=== PATIENT | female | born 1940 | race Caucasian/White ===

== ENCOUNTER 2020-09-23 14:55 | Emergency (ER) | payer OTHER ==
[~2020-09-23] VITALS: Ht 149.9 cm; Wt 90.7 kg
[2020-09-23] MEDS ORDERED: ORTHO DF 3,7751 EACH PO (15:18)
[2020-09-23] MEDS ORDERED: UCERIS9 MG PO (15:18)
[2020-09-23] MEDS ORDERED: PROPRANOLOL HCL10 MG PO (15:20)
[2020-09-23] MEDS ORDERED: MEMANTINE HCL10 MG PO (15:20)
[2020-09-23] MEDS ORDERED: SILDENAFIL20 MG PO (15:20)
[2020-09-23] MEDS ORDERED: ARICEPT10 MG PO (15:21)
[2020-09-23] MEDS ORDERED: VENTOLIN HFA18 GM IH (15:21)
[2020-09-23] MEDS ORDERED: SIMVASTATIN80 MG PO (15:21)
[2020-09-23] MEDS ORDERED: LOSARTAN POTAS100 MG PO (15:22)
[2020-09-23] MEDS ORDERED: IPRATROPIU0.2 MG/1 M IH (15:22)
[2020-09-23] MEDS ORDERED: AMLODIPINE-OLM1 EAC3 PO (15:23)
[2020-09-23] MEDS ORDERED: MONTELUKAST SODI4 M1 PO (15:24)
[2020-09-23] MEDS ORDERED: VENLAFAXINE HC150 M1 PO (15:24)
[2020-09-23] MEDS ORDERED: FUROSEMIDE20 MG PO (15:24)
[2020-09-23] MEDS ORDERED: HORIZANT300 MG PO (15:25)
[2020-09-23] MEDS ORDERED: SEROQUEL50 MG PO (15:26)
[2020-09-23] MEDS ORDERED: DITROPAN XL10 MG PO (15:26)
== END 2020-09-23 19:47 | disposition home or self-care (01) ==
LOC: ER 14:55
DX: J44.9 Chronic obstructive pulmonary disease, unspecified (principal); L03.116 Cellulitis of left lower limb